=== PATIENT | male | born 1945 | race Two or more races ===

== ENCOUNTER 2018-11-30 09:35 | Day surgery (SDC) | payer OTHER, MEDICAID, BC ==
[2018-11-30] MEDS ORDERED: MIDAZOLAM 1 MG/ML 2 ML INJ ×2 (11:44)
[2018-11-30] MEDS ORDERED: FENTAnyl 50 MCG/ML VIAL (11:44)
== END 2018-11-30 14:31 | disposition home or self-care (01) ==
LOC: GIL 09:35
DX: R19.4 Change in bowel habit (principal); K64.4 Residual hemorrhoidal skin tags; K64.8 Other hemorrhoids
CPT/HCPCS: 45378; 88305